=== PATIENT | female | born 1985 | race American Indian/Alaskan Native ===

== ENCOUNTER 2019-06-21 21:09 | Emergency (ER) | payer SELFPAY ==
--- NOTE | 2019-06-21 21:28 | Emergency Department Report ---
Blank Doc - Documentation Documentation: This is a 33-year-old female that presents with bilatearl knee pains, lower back pain and left wrist pain s/p fall. This initial assessment/diagnostic orders/clinical plan/treatment(s) is/are subject to change based on patient's health status, clinical progression and re-assessment by fellow clinical providers in the ED. Further treatment and workup at subsequent clinical providers discretion. Patient/guardians urged not to elope from the ED as their condition may be serious if not clinically assessed and managed. Initial orders include: 1- Patient sent to [facility] for further evaluation and treatment 2- xrays
[2019-06-21 21:29] VITALS: BP 113/61
== END 2019-06-21 21:30 | disposition left against medical advice (07) ==
LOC: ED 21:09
DX: M25.561 Pain in right knee (principal); M25.562 Pain in left knee; Z53.21 Procedure and treatment not carried out due to patient leaving prior to being seen by health care provider